=== PATIENT | female | born 1995 | race Hispanic/Latino ===

== ENCOUNTER 2017-01-01 19:16 | Emergency (ER) | payer SELFPAY ==
[~2017-01-01] VITALS: Ht 162.6 cm; Wt 63.5 kg
--- NOTE | 2017-01-01 19:50 | ED DYSPNEA/ASTHMA COMPLAINT ---
History of Present Illness General Chief Complaint: Wheezing/Asthma Stated Complaint: ASTHMA ACTING UP Source: patient Exam Limitations: no limitations Vital Signs & Intake/Output Vital Signs & Intake/Output Vital Signs Date Time Temp Pulse Resp B/P Pulse O2 O2 Flow FiO2 Ox Delivery Rate 01/01 2011 95 01/01 1921 98.0 91 16 110/69 96 Room Air Allergies Coded Allergies: No Known Allergies (01/01/17) Reconcile Medications Albuterol Sulfate (Proventil Hfa) 90 MCG HFA.AER.AD 2 PUF INH Q4 PRN wheezing Etonogestrel (Nexplanon) 68 MG IMPLANT CONTROL (Reported) Triage Note: PT TO ED FOR ASTHMA EXACERBATION X 1 DAY, SPEAKING IN CLEAR, FULL SENTENCES IN TRIAGE. REPORTING SHE LEFT HER INHALER "IN [place]". Triage Nurses Notes Reviewed? yes : No Patient currently breastfeeds: No HPI: 21-year-old female arrives through triage room 3 for evaluation of asthma exacerbation. She reports that she started with wheezing earlier today but does not have her albuterol on her since she is from [place]. She has cough but no phlegm. Denies fever, chills. She denies shortness of breath or chest pain. She reports she has never been intubated for this. She reports she has been on prednisone before. She denies any triggers. She reports she does not smoke. Past History Travel History Traveled to [place] past 21 day No Medical History Any Pertinent Medical History? 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 No Review of Systems Review of Systems Constitutional: Reports: no symptoms. EENTM: Reports: no symptoms. Respiratory: Reports: cough, wheezing. Cardiovascular: Reports: no symptoms. GI: Reports: no symptoms. Genitourinary: Reports: no symptoms. Musculoskeletal: Reports: no symptoms. Skin: Reports: no symptoms. Neurological/Psychological: Reports: no symptoms. Hematologic/Endocrine: Reports: no symptoms. Immunologic/Allergic: Reports: no symptoms. All Other Systems: Reviewed and Negative Physical Exam Physical Exam General Appearance: well developed/nourished, no apparent distress, alert, awake Head: atraumatic, normal appearance Eyes: Bilateral: normal appearance, PERRL, EOMI. Ears, Nose, Throat: normal pharynx, normal ENT inspection Neck: normal inspection, supple, full range of motion Respiratory: wheezing Cardiovascular: regular rate/rhythm Gastrointestinal: normal bowel sounds, soft, non-tender Extremities: normal inspection, normal capillary refill, normal range of motion, no edema Neurologic/Psych: no motor/sensory deficits, awake, alert, oriented x 3, normal gait, normal mood/affect Skin: intact, normal color, warm/dry Core Measures ACS in differential dx? No Severe Sepsis Present: No Septic Shock Present: No Progress Differential Diagnosis: asthma Plan of Care: Dave 1 here in the ER. Patient believes she does not need prednisone. She is here visiting and just needs albuterol/Proventil inhaler. Initial ED EKG: none Comments: Duo neb x1 given and patient feels much better. Repeat physical exam shows decreased wheezing and good aeration. She would like to go home with a prescription for albuterol/Proventil. Prescription sent in to [facility] pharmacy. Departure Departure Time of Disposition: 2037 Disposition: HOME OR SELF CARE Condition: Stable Clinical Impression Primary Impression: Asthma exacerbation Referrals: PATIENT HAS NO PRIMARY CARE DR (PCP/Family) Additional Instructions: Proventil inhaler 2 puffs every 4-6 hours as needed for wheezing. Please follow -up with your primary care provider or return to the emergency department for any worsening or concerning symptoms. Departure Forms: Customer Survey General Discharge Information Prescriptions: Current Visit Scripts Albuterol Sulfate (Proventil Hfa) 2 PUF INH Q4 PRN wheezing #1 INHAL Critical Care Note Critical Care Note Critical Care Time: non-applicable
[2017-01-01] MEDS ORDERED: NEXPLANON68 M1 (20:23)
[2017-01-01] MEDS ORDERED: PROVENTIL HFA6.7 GM INH (20:38)
[2017-01-01 20:53] VITALS: BP 112/68
[2017-01-02] MEDS ORDERED: PREDNISONE20 M1 PO (05:27)
== END 2017-01-01 20:53 ==
LOC: ERH 19:16
DX: J45.901 Unspecified asthma with (acute) exacerbation (principal)
CPT/HCPCS: 1263

== ENCOUNTER 2017-01-02 04:15 | Emergency (ER) | payer SELFPAY ==
[~2017-01-02] VITALS: Ht 170.2 cm; Wt 70.3 kg
[~2017-01-02 04:15] MED LIST: NEXPLANON68 M1; PROVENTIL HFA6.7 GM INH
[2017-01-02 04:31] VITALS: BP 120/84
--- NOTE | 2017-01-02 04:35 | ED DYSPNEA/ASTHMA COMPLAINT ---
History of Present Illness General Chief Complaint: Wheezing/Asthma Stated Complaint: "I WAS HERE A FEW HRS AGO" PT C/O ASTHMA O2 SAT 95 Source: patient, old records Exam Limitations: no limitations Vital Signs & Intake/Output Vital Signs & Intake/Output Vital Signs Date Time Temp Pulse Resp B/P Pulse O2 O2 Flow FiO2 Ox Delivery Rate 01/02 0444 94 01/02 0431 97.8 98 20 120/84 93 Room Air Allergies Coded Allergies: No Known Allergies (01/01/17) Reconcile Medications Albuterol Sulfate (Proventil Hfa) 90 MCG HFA.AER.AD 2 PUF INH Q4 PRN wheezing Etonogestrel (Nexplanon) 68 MG IMPLANT CONTROL (Reported) Triage Note: PT STATES HER ASTHMA HAS BEEN ACTING UP SINCE TUESDAY. PT STATE SHE WAS PRESCRIBED AN ALBUTEROL PUMP BUT HAS NOT TAKEN IT BECAUSE DHE DOES NOT HAVE HER MEDICAID CARD. WHEEZING NOTED UPON ARRIVAL. O2 SAT 93% RA. Triage Nurses Notes Reviewed? yes HPI: Patient presents for evaluation of an asthma attack that came back after being seen in the emergency department last night. Patient states she is from [place] and she does not have her medication card for her medications to use at home. symptoms initially began on Tuesday. In addition to the shortness of breath due to asthma she is also experiencing a runny nose. She otherwise denies fever or cold symptoms. Shortness of breath worsens with exertion. UNFortunately she is unable to fill the albuterol prescription provided during her prior emergency department visit due to financial concerns. Past History Medical History Any Pertinent Medical History? 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 No Review of Systems Review of Systems Constitutional: Reports: no symptoms. EENTM: Reports: see HPI. Respiratory: Reports: see HPI. Cardiovascular: Reports: no symptoms. GI: Reports: no symptoms. Genitourinary: Reports: no symptoms. Musculoskeletal: Reports: no symptoms. Skin: Reports: no symptoms. Neurological/Psychological: Reports: no symptoms. Hematologic/Endocrine: Reports: no symptoms. Immunologic/Allergic: Reports: no symptoms. All Other Systems: Reviewed and Negative Physical Exam Physical Exam Respiratory: SEE BELOW Comments: Gen.: Well-nourished, well-developed, no acute respiratory distress. Tired appearing. Head: Normocephalic, atraumatic. Eyes: Normal inspection bilaterally Ears: Normal inspection bilaterally Nose: Normal inspection Throat/mouth : Moist mucosa Neck: Supple, full range of motion, no goiter Heart: Regular rate and rhythm, no murmurs rubs or gallops Lungs: Scattered end expiratory wheezes with fair air entry. Chest: Nontender Back: Normal range of motion Abdomen: Soft, nontender, nondistended, normal bowel sounds Extremities: Normal range of motion grossly, equal radial pulses, no cyanosis clubbing or edema Neurologic: Cranial nerves grossly intact, speech is clear Skin: warm and dry Psychiatric: Calm, cooperative, no apparent delusions or hallucinations Core Measures ACS in differential dx? No Severe Sepsis Present: No Septic Shock Present: No Progress Differential Diagnosis: asthma, bronchitis, CHF, musculoskeletal pain, pneumonia Plan of Care: Current Medications Sig/Maximo Start time Last Medication Dose Stop Time Status Admin Albuterol Sulfate 3 ML ONCE ONE 01/02 445 UNVr (Proventil) 01/02 446 Ipratropium [place] 2.5 ML ONCE ONE 01/025 UNVr (Atrovent) 01/02 446 Initial ED EKG: none Comments: 01/02/2017 5:25:02 AM for reevaluation patient's air entry has improved and her wheezes have diminished although she still has mild scattered end expiratory wheezing. Clinically she appears more comfortable and conversant. As initially she felt she needed another treatment she is now reconsidered and no longer wishes to have one here in the emergency department. Departure Departure Disposition: HOME OR SELF CARE Condition: Stable Clinical Impression Primary Impression: Asthma exacerbation Referrals: PATIENT HAS NO PRIMARY CARE DR (PCP/Family) Additional Instructions: Albuterol inhaler as prescribed. Prednisone as prescribed. Follow-up with your primary care doctor tomorrow for reevaluation. Return if any concerns or sudden worsening. Thank you for choosing the [facility] Emergency Department for your care. It was a pleasure to serve you today. Wily Claudio M.D. [facility] Departure Forms: Customer Survey General Discharge Information Prescriptions: Current Visit Scripts Prednisone 3 TAB PO DAILY #9 TAB Critical Care Note Critical Care Note Critical Care Time: non-applicable
[2017-01-02] MEDS ORDERED: PREDNISONE20 M1 PO (05:27)
== END 2017-01-02 05:30 ==
LOC: ERH 04:15
DX: J45.901 Unspecified asthma with (acute) exacerbation (principal)
CPT/HCPCS: 1263; 1395